=== PATIENT | male | born 1975 | race Caucasian/White ===

== ENCOUNTER → 2017-09-05 17:42 | Outpatient (CLI) | payer SELFPAY ==
--- NOTE | 2017-09-05 18:15 | MRI_ITS ---
STUDY: MRI RIGHT ANKLE WITHOUT CONTRAST REASON FOR EXAM: Male, 42 years old. TECHNIQUE: Standardized fat and water weighted pulse sequences were obtained in all 3 orthogonal planes. COMPARISON: None. FINDINGS: Normal subcutis adipose space. Normal posterior tibialis tendon. Normal flexor digitorum longus tendon. Normal flexor hallucis longus tendon. There is a partial split tear of the peroneus brevis tendon within the retromalleolar groove with tenosynovitis, series 7 images through . There is prominent peroneal tubercle. There is marrow edema of the peroneal tubercle of the lateral calcaneus, series 3 images and . Normal tibialis anterior tendon. Normal extensor hallucis longus tendon. Normal extensor digitorum longus tendons. Normal Achilles tendon and teno-osseous insertion. Normal plantar fascia. Normal plantar calcaneal tubercles. Normal intrinsic muscles of the rearfoot. Normal distal tibiofibular syndesmotic ligamentous complex. Normal lateral ligamentous complex. Normal subtalar ligaments and sinus tarsi. Normal deltoid ligamentous complexes. Normal plantar calcaneonavicular (spring) ligament. Normal tibiotalar articulation. There is marrow edema of the lateral malleolus. Normal talar dome. There is os trigonum. There is accessory ossicle at the anterior calcaneus. Normal subtalar articulations. Normal talonavicular articulation. Normal calcaneocuboid articulation. Normal navicular-cuneiform articulations. MRI/Lower Ext Joint Only (Routine) IMPRESSION: Tenosynovitis of the peroneal tendons with partial split tear of the peroneal brevis. Stress injury of the peroneal tubercle of the calcaneus. Stress injury of the lateral malleolus. Electronically Signed: Vasquez Lind MD at 19:53 EDT , Service support ,
== END ==
PROVIDERS: Family Provider Family Medicine; PCP Family Medicine; Visit Provider Podiatrist
DX: M25.371 Other instability, right ankle (principal); M25.571 Pain in right ankle and joints of right foot; M25.9 Joint disorder, unspecified
CPT/HCPCS: 73721

== ENCOUNTER → 2017-10-24 16:38 | Outpatient (CLI) | payer SELFPAY | PROVIDERS: Family Provider Family Medicine; PCP Family Medicine; Visit Provider Family Medicine | DX: Z01.818 Encounter for other preprocedural examination (principal) ==

== ENCOUNTER 2017-11-17 08:06 | Day surgery (SDC) | payer SELFPAY ==
[2017-10-24 17:55] LABS: Absolute Lymphocyte Count 3.48 X10^3/ul (0.83-4.51); Absolute Neutrophil Count 3.8 X10^3/uL (2.0-7.7); Basophil# 0.02 X10^3/uL; Basophil% 0.3 % (0-1); Eosinophil# 0.12 X10^3/uL; Eosinophils% 1.5 % (0-5); Hematocrit 47.3 % (40-54); Hemoglobin 16.2 g/dl (13.0-16.5); Lymphocyte # 3.48 X10^3/ul (4.0); Lymphocyte % 43.9 % (19-41); Mean Corp Hgb Conc 34.2 g/gl (32-36); Mean Corpuscular Hgb 30.4 pg (27.0-32.0); Mean Corpuscular Volume 88.7 fL (80-94); Mean Platelet Vol. 11.4 fl (6.2-12.0); Monocyte# 0.52 X10^3/uL; Monocyte% 6.6 % (0-10); Neutrophil # 3.79 X10^3/uL (2.7-7.7); Neutrophil % 47.7 % (47-70); Platelet Count 190 K/mm3 (150-450); RBC Distribution Width CV 12.5 % (11.6-14.6); RBC Distribution Width SD 41.2 fl (35.1-43.9); Red Blood Count 5.33 M/mm3 (4.6-6.2); White Blood Count 7.9 K/mm3 (4.4-11.0)
[2017-10-24 18:04] LABS: POSITIVE COUNT NO; POSITIVE DIFFERENTIAL NO; POSITIVE MORPHOLOGY NO
[2017-10-24 18:30] LABS: ALB/GLOB Ratio 1.2 RATIO (0.9-2.4); AST(SGOT) 16 U/L (15-37); Alanine Aminotransfer ALT/SGPT 26 U/L (16-61); Albumin, Serum 3.9 g/dL (3.2-5.0); Alkaline Phosphatase 74 U/L (45-117); Anion Gap 6 (5-15); BUN 20 mg/dL (7-18); BUN/Creat Ratio 19.2 RATIO (10-20); Calcium,Total 8.8 mg/dL (8.5-10.1); Chloride 107 mmol/L (98-107); Creatinine, Serum 1.04 mg/dL (0.70-1.30); EST Glomerular Filtration Rate 83 mL/min (>60); Est Glom Filt Rate - Afr Amer 101 mL/min (>60); Globulin 3.2 g/dL (2.2-4.2); Glucose 85 mg/dL (74-106); Protein, Total 7.1 g/dL (6.4-8.2); Sodium Level 142 mmol/L (136-145)
[2017-11-17] VITALS (7 sets, daily range): BP systolic 112–123; BP diastolic 70–86; PULSE 65–93; RESP 14–18; TEMP 36.4–37.1; O2SAT 97–99; BMI 22.0
--- NOTE | 2017-11-17 | IMM_PTH ---
PATIENT: LAKESHA ANDERSON LOC: [facility] [place] U#:[id number] AGE/SX: 42/M ROOM: RE11/17/[address]: Dr. Lidia Odonnell DPM : 1975 BED: DIS: 11/17/2017 SPEC #: [id number] RECD: 11/22/17 12:47 STATUS: ZAHEER REQ #: [id number] JOSE: 11/17/17 00:[address]: Lidia Odonnell DEPT: IMMUNOHISTOCHEMISTRY RECD BY: Mi Turner ENTERED: 11/22/17 12:52 SP TYPE: IMMUNO OTHR DR: MD Dr. Zach Lynn MD Tissues: A - Bone of foot, NOS B - Tendon sheath, NOS Procedures: CD20 (add) CD45 (add) CD5 (add) CD79A (add) CD3 (initial) PHYSICIAN & INSTITUTION [place] [id number] SPECIMEN INFORMATION: Tissue Source: A ? Right calcaneus, bone spur and bone, B ? Tendon sheath right foot Clinical Info: Peroneal brevis tear, exostosis calcaneus, ankle instability Specimen Number: [id number] A2 & B CPT code: 47447 x2, 40045 x8 METHODOLOGY: Deparaffinized sections of prefer/formalin-fixed tissue or PAP/DQ stained slides are incubated with monoclonal/polyclonal antibodies/oligonucleotide probes. Localization is made via biotin free immunoperoxidase method. Appropriate controls are performed and reacted as expected. Results on target cell population are indicated in the following table: RESULTS: ANTIBODY / CLONE RESULT Block A2 CD3 (PS1) positive CD5 (SP10) positive CD20 (L26) positive CD45 (RP2/18) positive CD79a (11E3) positive Block B CD3 (PS1) positive CD5 (SP10) positive CD20 (L26) positive CD45 (RP2/18) positive CD79a (11E3) positive These tests were developed and their performance characteristics determined by [facility]. They may not have been cleared or approved by the U.S. Food and Drug Administration. The FDA has determined that such clearance or approval is not necessary. INTERPRETATION: A. Right calcaneus, bone spur and bone, biopsy: Polytypic (benign) lymphoid aggregates. B. Tendon sheath right foot: Polytypic (benign) lymphoid aggregates. AM:yugn 11/23/17
--- NOTE | 2017-11-17 | BON_PTH ---
PATIENT: LAKESHA ANDERSON LOC: [facility] [place] U#:[id number] AGE/SX: 42/M ROOM: RE11/17/[address]: Dr. Lidia Odonnell DPM : 1975 BED: DIS: 11/17/2017 SPEC #: [id number] RECD: 11/17/17 13:50 STATUS: ZAHEER HENSON #: [id number] JOSE: 11/17/17 00:[address]: Lidia Odonnell DEPT: SURGICAL PATHOLOGY RECD BY: Sonny Swift ENTERED: 11/17/17 13:50 SP TYPE: Bone OTHR DR: MD Dr. Zach Lynn MD Tissues: A - Bone of foot, NOS B - Tendon sheath, NOS Procedures: Decalcification bone/plaque Surgery Specimen Level III HEADER OPERATION: Repair peroneal tendons, excision of hypertrophic peroneal spur PRE-OP DIAGNOSIS: Peroneal brevis tear; exostosis, calcaneus; ankle instability TISSUE SUBMITTED: A ? Right calcaneus, bone spur and bone biopsy, B ? Tendon sheath, right foot MICROSCOPIC DIAGNOSIS A. Right calcaneus bone spur, biopsy: Fragments of osteocartilaginous tissue with degenerative and reparative change. B. Right foot tendon sheath, biopsy: Fragments of fibrofatty tissue with chronic inflammation. AM:yung 11/22/17 COMMENT A & B. The specimens contains benign (polytypic) lymphoid aggregates confirmed by immunohisto-chemistry ([id number]). Case discussed with Dr. Odonnell on 11/24/17 at 9:[address] Gonzalez. MICROSCOPIC DESCRIPTION Slides are reviewed. GROSS DESCRIPTION A - Received in fixative is one container labeled with the patient's name and designated calcaneus, bone spur and bone biopsy. The specimen consists of multiple pieces of bone that in aggregate measure 5 x 3 x 0.3 cm. The entire specimen is submitted in two cassettes after decalcification. B - Received in fixative is one container labeled with the patient's name and designated tendon sheath, right foot. The specimen consists of three variable sized pieces of escobar soft tissue that in aggregate measure 3 x 2.5 x 0.5 cm. Medical Device Assembler sections are submitted in one cassette. / ISRRAEL:yung 11/17/17 TC:5 CPT: 62623 x2, 18458
[2017-11-17] MEDS: Cefazolin 2 GM in 0.9% Normal Saline 100 ML IV (09:45)
--- NOTE | 2017-11-17 09:45 | RAD_ITS ---
STUDY: X-RAY - RIGHT ANKLE REASON FOR EXAM: Male, 42 years old. Peroneal tendon repair. TECHNIQUE: Single coned-down view(s) of the ankle was obtained intraoperatively. COMPARISON: None. FINDINGS: A metallic probe is seen overlying the lateral aspect of the tarsal region of the foot. RAD/Ankle 2 Views IMPRESSION: Intraoperative imaging provided for repair of peroneal tendons. Electronically Signed: Fermin Sharpe MD at 12:56 EDT Tel [phone], Service support ,
[2017-11-17] MEDS: Bupivacaine Mpf 0.5% 30 ML VIAL (10:05)
--- NOTE | 2017-11-17 12:17 | DCINST_ITS ---
Discharge Diet: No Restrictions Discharge Activity: Use Crutches Weight Bearing Status: No weight bearing Keep extremity elevated above heart level: Right Leg Call your doctor if your incision/area has: Continuous Slow Oozing, Sudden Increased Bleeding, Increased Pain/ Swelling, Increased Redness, Foul Smelling Discharge, Swelling at the incision site Call your doctor if you observe: Fever of 101 or Higher, Coldness, Increased Pain, Calf discomfort, Uncontrolled pain Cleanse incision/area with: Keep Dressing Clean & Dry Allergies/Adverse Reactions: Allergies No Known Allergies Allergy (Verified 11/10/17 15:29) Medications to take at Discharge NK [NK] 11/10/17 Primary Care Physician: Zach Phillips MD [Primary Care Provider] - Test Results: Test results from this visit will be discussed in further detail at your follow- up appointment, if applicable. Please Follow Up With: Lidia Odonnell DPM When: 1 week. call [phone] Proposed Discharge Date: 11/17/17
--- NOTE | 2017-11-17 12:19 | PCM.IMDPSTOP ---
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 Right proneness brevis and longus tenosynovitis. Right lateral calcaneus exostosis with peroneal tendon impingement. Laxity lateral ankle ligaments with subjective chronic instability Post-Operative Diagnosis: Right peroneus brevis tendon tear. Right proneness brevis and longus tenosynovitis. Right lateral calcaneus exostosis with peroneal tendon impingement. Laxity lateral ankle ligaments with subjective chronic instability Surgery/Procedure Performed:: 1. Exostectomy lateral calcaneus wall with bone biopsy, right foot. 2. Proteus brevis tendon tear repair, right. 3. Lateral right ankle stabilization; Brostr?m Gold procedure Description of Surgical Findings:: hemostasis controlled See detailed operation report The patient tolerated the procedure and anesthesia well. He was transported to the PACU with vital signs stable and vascular status intact to the right lower extremity. Postoperative x-rays were obtained while on the operating room table. Postoperative orders were entered in the computer postoperatively and he will be discharged home later today. Estimated Blood Loss: < 100 mL Specimen's removed: 1. Calcaneus exostosis right foot sent to pathology. 2. Debrided tendon sheath right peroneal tendons Type of Anesthesia:: Local MAC - Preoperative injection: 1-1 mixture of 1% lidocaine plain and 0.5% Marcaine plain administered and high ankle block fashion, 13 cc Postoperative injection: 1-1 mixture of 1% lidocaine plain and 0.5% Marcaine plain administered and high ankle block fashion and local infiltration, 12 cc - Admit VTE Documentation VTE Present on Admission: No VTE Mechan Device Prophylaxis: SCD's VTE Pharm Prophylaxis ordered?: No Reason prophylaxis not ordered:: Treatment Not Indicated
--- NOTE | 2017-11-17 12:40 | RAD_ITS ---
STUDY: X-RAY - RIGHT CALCANEUS REASON FOR EXAM: Male, 42 years old. Postoperative imaging. TECHNIQUE: 2 view(s) of the calcaneus were obtained. COMPARISON: None. FINDINGS: Normal visualized calcaneus. Postoperative soft tissue changes. RAD/Calcaneus min 2 Views IMPRESSION: Postoperative soft tissue changes. Electronically Signed: Fermin Sharpe MD at 14:33 EDT Tel [phone], Service support ,
--- NOTE | 2017-11-17 12:42 | PCM.OPRPT ---
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 Right proneus brevis and longus tenosynovitis. Right lateral calcaneus exostosis with peroneal tendon impingement. Laxity lateral ankle ligaments with subjective chronic instability Post-Operative Diagnosis: Right peroneus brevis tendon tear. Right peroneus brevis and longus tenosynovitis. Right lateral calcaneus exostosis with peroneal tendon impingement. Laxity lateral ankle ligaments with subjective chronic instability Surgery/Procedure Performed:: 1. Exostectomy lateral calcaneus wall with bone biopsy, right foot. 2. Peroneus brevis tendon tear repair, right. 3. Lateral right ankle stabilization; Brostr?m Loya procedure Description of Surgical Findings:: Hemostasis: Well-padded pneumatic thigh tourniquet, 325 mmHg -82 minutes Materials: 3-0 nylon, 2-0 Vicryl, 3-0 Vicryl, 0 FiberWire, one Arthrex one-point 3 suture tack Complications: None senior health physics technician: none Type of Anesthesia:: Local MAC - Preoperative injection: 1-1 mixture of 1% lidocaine plain and 0.5% Marcaine plain administered and high ankle block fashion, 13 cc Postoperative injection: 1-1 mixture of 1% lidocaine plain and 0.5% Marcaine plain administered and high ankle block fashion and local infiltration, 12 cc Specimen's removed: 1. Calcaneus exostosis right foot sent to pathology. 2. Debrided tendon sheath right peroneal tendons sent to pathology Estimated Blood Loss (mL): < 100 mL Description of Procedure: Indications: This 42-year-old male with no known significant past medical history continues to complain of right ankle and foot discomfort that has progressively worsened over the past several years. He relates he has always had a lump to the outside of his foot which is irritated with shoe gear use, walking, and standing. His pain is affecting his ability to complete work as needed. His neurovascular status is intact and he has a palpable prominent lateral foot with apparent impingement of the peroneal tendon between the distal aspect of the lateral malleolus. X-rays demonstrate a lateral flare bone proliferation of the peroneal spine in close approximation to the distal fibula. There are no fractures or dislocations noted. 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 He did obtain an MRI which demonstrated tenosynovitis of the peroneal tendons with a partial split thickness tear of the peroneus brevis tendon. There also appears to be stress riser reaction to the peroneal tubercle of the calcaneus which is significantly enlarged as well as the distal aspect of the lateral malleolus. There is no osteochondral lesions of the talus noted and the lateral ankle ligaments do not appear to have gross abnormalities according to the MRI. The preoperative indications, planned procedure, possible benefits, risks, complications, and anticipated healing time and management were discussed in detail the patient. He understands and elects to proceed with surgery at this time. No guarantees are made. He understands complications may include but are not limited to the following: infection, delayed or non healing, under or over correction, hardware failure, need for revisional surgery, allergic reaction, blood clot, scar formation, swelling, continued pain, loss of limb, life or function. The surgical limb and the surgical consent were signed. His preoperative history and physical exam was reviewed from Dr. Hanson. His preoperative diagnostic data including a CBC and CMP were reviewed without gross abnormalities. Smoking cessation was advised. I answered all his questions to his satisfaction. Procedure in detail: The patient was transferred to the operating room via cart and placed on the operating table in the supine position. Final verification of the patient, surgery, and limb designation was performed via the timeout procedure. General anesthesia was initiated by the anesthesia team and the podiatry team performed a preoperative local anesthetic injection. He was bumped with blankets and pillows to allow good exposure to the lateral foot and ankle. A well-padded pneumatic right thigh tourniquet was placed. The right lower extremity was prepped and draped in the usual aseptic manner. Exsanguination was performed with an Esmarch bandage and the tourniquet was inflated. Surgery began as a following: A curvilinear incision was made along the lateral aspect of the ankle to allow good exposure to the peroneal tendons, distal fibula, as well as the lateral calcaneal wall through the skin. Care was taken to identify, protect, and retract all neurovascular structures at this point and throughout the remainder of surgery. Blunt dissection was next performed down through subcutaneous tissue to the peroneal sheath and there was immediately synovitis identified from the peroneal tendons that were impinged between the distal fibula as well as the large exostosis to the lateral calcaneal wall where the peroneal spine is usually located. This was carefully reflected and the lateral calcaneal peroneal spine was marginalized and removed with an osteotome and mallet. This was sent for pathology biopsy. This was smoothed with a rongeur and irrigated with normal saline. Next the peroneal tendons were debrided of copious amounts of tenosynovitis and this was also sent to pathology for evaluation. There was a small 2.3 cm length partial peroneus brevis tear distal to the lateral malleolus that was debrided and excised. Next the nylon suture was used to repair and re-tubularized this tendon. The peroneus longus tendon was investigated and there were no tears or degeneration within the tendon itself identified. Next the peroneal sheath was reapproximated utilizing nylon suture with pants over vest technique to reapproximate this structure. The foot and ankle were taken through a gentle range of motion to ensure appropriate mobilization was maintained. Next, the lateral ankle ligament structures were clinically visualized in surgery and were very thickened with chronic tissue and invaginated into the lateral ankle and subtalar joint with fibrous deep thickened bands. This was debrided of nonviable tissue and a Brostr?m repair was determined appropriate at this time due to the location of dissection and debridement. There was some clinical laxity noted with the inversion stress test of the ankle and his subjective chronic ankle instability complaints support this repair. Intraoperative flouroscopy was used to confirm resection of the clinically relates spur was removed and to further evaluate the ankle for sagittal and frontal plane instability. A 1.3 Arthrex suture tack anchor was applied to the distal fibula centrally and was utilized as part of her Brostr?m repair with this FiberWire utilizing pants over vest technique. Care was taken to hold the ankle in an appropriate position and in a non-anterior translated position and slightly everted position during the direct repair process. Additional incorporation with the inferior extensor retinaculum which was performed. This was successfully performed and increased stability was noted at this repair site. Next the tourniquet was deflated and no pulsatile bleeding was noted. Minimal electrocauterization was performed and pressure was applied to maintain hemostasis. The ankle sagittal plane range of motion was tested and was smooth and gliding without crepitus. Deep closure was achieved with 2-0 Vicryl and the skin was reapproximated with 3-0 nylon utilizing horizontal mattress technique. Capillary brisk time was noted less than 3 seconds to all digits of the right foot. A postoperative injection was administered as noted above. Adaptic soaked in Betadine was applied followed by gauze and sterile webril. Next a well-padded posterior mold splint was applied with the ankle in a neutral position with slight eversion to protect the repair site. After procedure: The patient tolerated the procedure and anesthesia well. He was transported to the PACU vital signs stable and vascular status intact the right lower extremity. He will be discharged home later today upon continued PACU stability. Postoperative x-rays will be obtained. He was advised to remain nonweightbearing to the right lower extremity with a postoperative posterior mold splint and crutches. To ice and elevate for pain and inflammation management. He was provided with [place] postoperative pain medicine and advised on safe and proper use. He was advised to take this only if needed. He will keep his dressing and well padded splint clean, dry, and intact until he comes to clinic in 1 week. His pathology findings are pending. All of his orders were entered electronically. Lidia Odonnell DPM, FACFAS
--- NOTE | 2017-11-17 12:50 | RAD_ITS ---
STUDY: X-RAY - RIGHT ANKLE REASON FOR EXAM: Male, 42 years old. Postoperative evaluation. TECHNIQUE: AP and lateral view(s) of the ankle. COMPARISON: None. FINDINGS: Postoperative soft tissue changes worse on the lateral aspect. RAD/Ankle 2 Views IMPRESSION: Lateral soft tissue swelling. Postoperative changes. Electronically Signed: Fermin Sharpe MD at 14:34 EDT Tel [phone], Service support ,
== END 2017-11-17 14:20 | disposition home or self-care (01) ==
LOC: SDC 08:12 → AC 08:13
PROVIDERS: Family Medicine; Family Provider Family Medicine; PCP Family Medicine; Visit Provider Podiatrist
PROC: (CPT 27658; principal; 2017-11-17 09:30)
DX: M76.71 Peroneal tendinitis, right leg (principal); M89.9 Disorder of bone, unspecified; M65.871 Other synovitis and tenosynovitis, right ankle and foot; M25.871 Other specified joint disorders, right ankle and foot; M24.271 Disorder of ligament, right ankle; F17.200 Nicotine dependence, unspecified, uncomplicated
CPT/HCPCS: 27658; 27696; 28118; 36415; 73600; 73610; 73650; 76000; 80053; 85025; 88304; 88311; 88341; 88342; C1713; J7120; J2405

== ENCOUNTER 2018-01-25 08:00 | Outpatient (RCR) | payer SELFPAY ==
--- NOTE | 2018-01-24 13:05 | HP.PTEVAL_ITS ---
Patient's Visit Information LAKESHA ANDERSON is a 42 year old M referred to Physical Therapy by Lidia Odonnell DPM with a diagnosis of R ankle stabilization, peroneal tendon repair. Date of Evaluation: 01/11/18 Physical Therapist: Sin Salcido - Visit Plan Frequency: 1-2x /Week Duration: 4-6 Weeks Plan: Start with ankle ROM, MMT, proprioception exercises. Progress back to walking and work related activities as tolerated. - Subjective Subjective: Pt. is here today for his initial evaluation with diagnosis of R ankle stabilization, peroneal tendon repair. Pt. arrives today without CAM boot , but as an ASO on and has bee progressing into this brace. Pt. reprots having minimal pain, except early in the morning when he has intense pain at his heel with initial standing. His symptoms improve with strethcing and walking. 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 Pt. is planning to return soon. He does have some numbness at his lateral two toes, but has improved since being out of boot. Pt. also plays softball and would like to get back to playing. He reports being HEP compliant without issues. - Pain R ankle/foot Pain Intensity (Out of 10): 2 Pain Intensity Range: 0, 4 - Objective POSTURE: Pt. has slight wt. shift L side. PT. has increased pes planus bilaterally. Pt. has normal knee and iliac crest positoning. PALPATION: Pt. has minimal edema throughout R foot/ankle. He has well healing incision without issues. Pt. has slight tenderness at achilles tendon and at lateral ankle. NEURO: normal with all sensation and DTR bilaterally. ROM: L ankle- DF 16deg, PF 49deg, INV 20deg, EVR 20deg. R ankle- AROM- DF 7deg, PF 48deg, INV 4deg, EVR 4deg. PROM- DF 13deg, PF 54deg, EVR 6deg- mild increase NW, INV 6deg mild increase NW. MMT: L ankle- 5/5 throughout. R ankle- PF 4/5, DF 4/5, INV 4/5, EVR 4-/5. GAIT: Pt. has early heel off with RLE, decreased L step length. Pt. has slight R lateral lean during R stance phase. STAIRS: Pt. completed with step to pattern with 1 HR. - Goals Goal 1:: Pt. to be I with HEP. Goal Time Frame: 4-6 Weeks Goal 2:: Pt. to ahve increased R ankle ROM increased by 25% in all directions allowing for increased ability to complete all frunctional mobility. Goal Time Frame: 4-6 Weeks Goal 3:: Pt. to have increased R ankle MMT by 1/2 grade of all effected musculature allowing for increased ability to complete all functional mobility. Goal Time Frame: 4-6 Weeks Goal 4:: Pt. to ambulate unlimited distances with normalized gait pattern without increase in symptoms. Goal Time Frame: 4-6 Weeks Goal 5:: Pt. to negotiate steps with reciprocal pattern with 1 HR without increase in symptoms. Goal Time Frame: 4-6 Weeks Goal 6:: Pt. to return to work without limitations or increase in symptoms. Goal Time Frame: 4-6 Weeks - Rehabilitation Potential Physical Therapy Diagnosis: Pt. has signs and symptoms consistent with R ankle stabilization, peroneal tendon repair with subsequent hypomobility, ankle weakness and difficulty with walking. He would benefit from PT to address above limitations progressing back to all functional mobility and recreational activities without limitations. Rehabilitation Potential: Excellent - Anticipated Interventions Patient/Client Instruction: Educate patient on: Condition, Plan of Care, Risk Factors, Benefits of Fitness Program For the Purpose of:: To improve decision making, To facilitate caregiver knowledge, To improve self management, To prevent re-injury, To improve ability to perform tasks related to life management, To improve tolerance to ADL's Therapeutic Exercise to Include: Strength training, Power training, Endurance training, Balance training, Postural training, Flexibilty training, Gait and locomotor training, Passive ROM, Active ROM For the Purpose of:: To decrease pain, To decrease swelling/inflammation, To increase ROM, To improve nutrient delivery to tissue, To increase oxygenation perfusion, To improve muscle performance and motor function, To improve health of tissue, To decrease soft tissue restriction, To increase flexibility/ROM IF ES: Yes Cryotherapy (ice pack, ice massage): Yes Ultrasound (thermal/non thermal): Yes For the Purpose of:: To decrease pain, To decrease swelling/inflammation, To increase ROM, To improve nutrient delivery to tissue, To improve gait and locomotor functions, To improve health of tissue, To decrease soft tissue restriction, To increase flexibility/ROM Thank you for the opportunity to evaluate your patient. For Medicare and Medicare HMO plans, please review the plan of care and approve it. It will need to be FAXED BACK to us at [phone] for Medicare purposes. Please let me know if there are questions or concerns regarding this plan of care. Physician Signature: Date:
--- NOTE | 2018-08-10 10:21 | HP.PT.NRP ---
HP - Discharge Summary (1) - Patient Information LAKESHA ANDERSON was seen in my office for initial evaluation on 01/11/18. The following Plan of Care was established for this patient: Initial Frequency: 1-2x /Week Initial Duration: 4-6 Weeks - Anticipated Interventions Patient/Client Instruction: Educate patient on: Condition, Plan of Care, Risk Factors, Benefits of Fitness Program For the Purpose of:: To improve decision making, To facilitate caregiver knowledge, To improve self management, To prevent re-injury, To improve ability to perform tasks related to life management, To improve tolerance to ADL's Therapeutic Exercise to Include: Strength training, Power training, Endurance training, Balance training, Postural training, Flexibilty training, Gait and locomotor training, Passive ROM, Active ROM For the Purpose of:: To decrease pain, To decrease swelling/inflammation, To increase ROM, To improve nutrient delivery to tissue, To increase oxygenation perfusion, To improve muscle performance and motor function, To improve health of tissue, To decrease soft tissue restriction, To increase flexibility/ROM IF ES: Yes Cryotherapy (ice pack, ice massage): Yes Ultrasound (thermal/non thermal): Yes For the Purpose of:: To decrease pain, To decrease swelling/inflammation, To increase ROM, To improve nutrient delivery to tissue, To improve gait and locomotor functions, To improve health of tissue, To decrease soft tissue restriction, To increase flexibility/ROM This patient was last seen in our office 01/25/18. Pertinent comments regarding their Physical therapy will appear below: Pt. was seen after his ankle surgery. Pt. was treated for 3 visits and was doing well. He did not return to subsequent visits. Pt. has not been seen in several months and will be DC from PT at this point in time. At this point I will be discontinuing this patient from physical therapy. I would be happy to see this patient again in the future if found appropriate by the physician. Thank you! MAGUI ElenaT
== END 2018-01-25 19:00 | disposition home or self-care (01) ==
LOC: PT 08:00
PROVIDERS: Family Provider Family Medicine; PCP Family Medicine; Visit Provider Podiatrist
DX: Z98.890 Other specified postprocedural states (principal)
CPT/HCPCS: 97110; 97162